=== PATIENT | male | born 1995 | race Caucasian/White ===

== ENCOUNTER 2020-07-08 08:53 | Outpatient (NON) | payer BC, SELFPAY ==
[2020-07-08 20:28] LABS: SARS-CoV-2 RNA PCR Positive
== END 2020-07-08 08:54 ==
PROVIDERS: PCP Internal Medicine; Visit Provider Clinical Nurse Specialist
DX: U07.1 COVID-19 (principal)
CPT/HCPCS: 87635; C9803; U0003

== ENCOUNTER 2020-08-14 11:27 | Emergency (ER) | payer BC, SELFPAY ==
--- NOTE | 2020-08-14 11:31 | ED.GENADULT ---
HPI - General Adult General Chief complaint: Upper Respiratory Infection Stated complaint: SORE THROAT Time Seen by Provider: 08/14/20 11:31 Source: patient Mode of arrival: ambulatory Limitations: no limitations History of Present Illness HPI narrative: 24-year-old male patient presents to the [facility] with complaints of sore throat symptoms that started yesterday. Patient states he feels kind of scratchy and at times it causes him to cough. Denies any fevers, body aches or chills. Denies any ear pain. Denies any runny nose or stuffy nose or sneezing. Denies any chest pain or shortness of breath. Denies any abdominal pain, nausea, vomiting or diarrhea. Patient states he has taken some vqlw-[id number] Tylenol for his symptoms. Patient states that he does vape daily. Patient states he was positive for COVID approximately 1 month ago and has finished his quarantine. Related Data Allergies Allergy/AdvReac Type Severity Reaction Status Date / Time No Known Allergies Allergy Verified 09/23/19 14:18 Review of Systems Review of Systems: Narrative: CONSTITUTIONAL: Denies fever, chills, or sweats. EYES: Denies visual changes, redness, or discharge. ENT: Denies rhinorrhea, congestion, positive sore throat, denies otalgia. CARDIOVASCULAR: Denies chest pain, palpitations, or edema. RESPIRATORY: Positive nonproductive cough, denies dyspnea. GASTROINTESTINAL: Denies abdominal pain, nausea, vomiting, or diarrhea. GENITOURINARY: Denies dysuria or hematuria. SKIN: Denies rash or itching. MUSCULOSKELETAL: Denies back pain, joint pain, or myalgia. NEUROLOGIC: Denies headache, numbness, or weakness. PSYCHIATRIC: Denies anxiety or depression. [facility] Past Medical History Medical History ADHD Depression Surgical History Surgical History History of placement of ear tubes History of tonsillectomy History of tympanoplasty of right ear Family History Family History Father Hypertension Mother Depression Sibling Cerebral palsy Social History Social History (Reviewed 08/14/20 @ 11:32 by LYNN Chang Smoking status: Current some day smoker Tobacco type: e-cigarettes/vaping Alcohol intake: current Comments At the time of my signature I agree with nursing past medical history, surgical, social, and family history. There is no relevant family history pertinent to the presenting complaint. Exam Narrative: Exam Narrative: GENERAL: Well-appearing, well-nourished, and in no acute distress. HEAD: Normocephalic, atraumatic. EYES: PERRLA and EOMI. ENT: Nares with erythema and edema noted bilaterally, no rhinorrhea or epistaxis. Mucous membranes moist. Right TM is clear no erythema or foreign bodies to the canal however there is a little bit of fluid behind the right TM. The left TM was unable to be assessed due to cerumen impaction. Posterior pharynx does have some erythema, no tonsils are present. No exudates or lesions present. NECK: Supple. No lymphadenopathy CHEST: Clear to auscultation. No respiratory distress. HEART: Regular rate and rhythm. No murmur heard. Normal peripheral pulses. ABDOMEN: Soft, nontender, nondistended, normal active bowel sounds. EXTREMITIES: Normal range of motion. No edema. SKIN: Warm, dry, no rash. NEURO: No focal deficits. Alert and oriented x3. Course Reevaluation(s) Reevaluation #1: Reevaluated patient. Discussed with him that his strep test is negative today. Discussed with him that we will send it off to the lab for culture and if the culture comes back positive the next day or 2 then we will call in place him on antibiotics at that time. Patient is requesting a work note. Because patient we did test positive for COVID last month and has finished his quarantine I am willing to give him a work note today due to the fact ceci
[2020-08-14 11:36] VITALS: BP 120/69; PULSE 85; RESP 16; TEMP 36.8; O2SAT 100
== END 2020-08-14 12:00 | disposition home or self-care (01) ==
PROVIDERS: Emergency Provider Nurse Practitioner Family; PCP Internal Medicine
DX: J02.9 Acute pharyngitis, unspecified (principal); F17.200 Nicotine dependence, unspecified, uncomplicated; F32.9 Major depressive disorder, single episode, unspecified
CPT/HCPCS: 87081; 87147; 87880; 99213; G0463

== ENCOUNTER 2020-09-28 12:02 | Emergency (ER) | payer BC, SELFPAY ==
[2020-09-28 12:16] VITALS: BP 131/64; PULSE 65; RESP 16; TEMP 37.3; O2SAT 99
--- NOTE | 2020-09-28 12:35 | ED.URI ---
HPI - URI/Sore Throat General Chief Complaint: Upper Respiratory Infection Stated Complaint: sore throat/abd pain Time Seen by Provider: 09/28/20 12:27 Source: patient and RN notes reviewed Mode of arrival: ambulatory Limitations: no limitations History of Present Illness HPI Narrative: 24-year-old male presents with concern for sore throat, nausea, 2 episodes of vomiting today. He reports he had Covid in June, he has treated for strep throat 2 weeks ago, he did not finish his antibiotic. Reports he has approximately 6 doses left that he did not take. He reports he did replace his toothbrush. MD elicited complaint: sore throat and other (Nausea) Related Data Allergies Allergy/AdvReac Type Severity Reaction Status Date / Time No Known Allergies Allergy Verified 09/23/19 14:18 Review of Systems Review of Systems: Narrative: CONSTITUTIONAL: Denies malaise, chills, sweats, or fever. EYES: Denies visual changes, redness, or discharge. ENT: Denies rhinorrhea, congestion, sinus pain, otalgia. Reports sore throat. CARDIOVASCULAR: Denies chest pain, palpitations, or edema. RESPIRATORY: Reports cough. Denies dyspnea. GASTROINTESTINAL: Denies abdominal pain,diarrhea. Reports nausea, vomiting, SKIN: Denies rash or itching. MUSCULOSKELETAL: Denies myalgia. NEUROLOGIC: Denies headache. All systems reviewed & are unremarkable except as noted in HPI and below PMFSH Past Medical History Medical History (Updated 09/28/20 @ 12:36 by Arabella Eduardo NP) ADHD Depression Surgical History Surgical History History of placement of ear tubes History of tonsillectomy History of tympanoplasty of right ear Family History Family History Father Hypertension Mother Depression Sibling Cerebral palsy Social History Social History Smoking status: Current some day smoker Tobacco type: e-cigarettes/vaping Alcohol intake: current Comments At time of signature, agree with nursing past medical, surgical, social and family history. There is no relevant family history pertinent to the presenting complaint Exam Narrative: Exam Narrative: GENERAL: Well-appearing, well-nourished, and in no acute distress. HEAD: Normocephalic EYES: PERRLA, conjunctivae clear ENT: Nares clear, turbinates pink, no discharge. Mucous membranes moist. TM pearly troy with sharp light reflex bilaterally; no tragal tenderness. Oropharynx erythematous without lesions. Tonsils enlarged and without exudate, no drooling, no hoarseness, no trismus, uvula midline. NECK: Supple. No lymphadenopathy CHEST: Clear to auscultation, breath sounds equal. No wheezing, rhonchi, rales, or stridor. No respiratory distress, speaks in full sentences. HEART: Regular rate and rhythm. No murmur heard. SKIN: Warm, dry, no rash. NEURO: Alert and oriented x3. PSYCH: Normal mood and affect Course Course Emergency Course: Patient is aware of diagnosis, understands and agrees to treatment plan. Anticipatory guidance given. Patient agrees to follow-up as directed and is aware of reasons to seek care at the emergency department. Portions of this record may have been created with voice recognition software Vital Signs Vital signs: Vital Signs Temperature 99.1 F 09/28/20 12:16 Pulse Rate 65 09/28/20 12:16 Respiratory Rate 16 09/28/20 12:16 Blood Pressure 131/64 09/28/20 12:16 Pulse Oximetry 99 09/28/20 12:16 Temperature 99.1 F 09/28/20 12:16 Pulse Rate 65 09/28/20 12:16 Respiratory Rate 16 09/28/20 12:16 Blood Pressure 131/64 09/28/20 12:16 Pulse Oximetry 99 09/28/20 12:16 Reviewed. MDM - URI/Sore Throat MDM Narrative Medical decision making narrative: Differential diagnosis considered: Soto virus, strep pharyngitis, allergic rhinitis, upper respiratory tract infection, sinusitis,
== END 2020-09-28 12:38 | disposition home or self-care (01) ==
PROVIDERS: Emergency Provider Nurse Practitioner; PCP Internal Medicine
DX: J02.0 Streptococcal pharyngitis (principal); F17.200 Nicotine dependence, unspecified, uncomplicated; F32.9 Major depressive disorder, single episode, unspecified
CPT/HCPCS: 87880; 99213; G0463

== ENCOUNTER 2020-11-04 15:26 | Emergency (ER) | payer BC, SELFPAY ==
[2020-11-04 15:41] VITALS: BP 128/73; PULSE 73; RESP 16; TEMP 36.8; O2SAT 100
--- NOTE | 2020-11-04 15:45 | ED.URI ---
HPI - URI/Sore Throat General Chief Complaint: Upper Respiratory Infection Stated Complaint: sore throat Source: patient Mode of arrival: ambulatory Limitations: no limitations History of Present Illness HPI Narrative: Patient is a 25-year-old male who presents complaining of sore throat, headache and body aches x2 days. Patient reports a friend mother is positive for at this time. Patient denies fever. He denies all other complaints. Patient has not taking any iqrk-ner-goeqctc medications for pain at this time. MD elicited complaint: sore throat Related Data Home Medications Medication Instructions Recorded Confirmed No Home Medications 11/04/20 11/04/20 Allergies Allergy/AdvReac Type Severity Reaction Status Date / Time No Known Allergies Allergy Verified 09/23/19 14:18 Review of Systems Review of Systems: Narrative: CONSTITUTIONAL: Denies fever, chills, or sweats. EYES: Denies visual changes, redness, or discharge. ENT: Reports sore throat CARDIOVASCULAR: Denies chest pain, palpitations, or edema. RESPIRATORY: Denies cough or dyspnea. GASTROINTESTINAL: Denies abdominal pain, nausea, vomiting, or diarrhea. GENITOURINARY: Denies dysuria or hematuria. SKIN: Denies rash or itching. MUSCULOSKELETAL: Denies back pain, joint pain, or myalgia. NEUROLOGIC: Reports headache, denies numbness, dizziness, or weakness. PSYCHIATRIC: Denies anxiety or depression. PMFSH Past Medical History Medical History (Updated 11/04/20 @ 16:00 by NANCY Adler) ADHD Depression Surgical History Surgical History History of placement of ear tubes History of tonsillectomy History of tympanoplasty of right ear Family History Family History Father Hypertension Mother Depression Sibling Cerebral palsy Social History Social History Smoking status: Current some day smoker Tobacco type: e-cigarettes/vaping Alcohol intake: current Exam Narrative: Exam Narrative: GENERAL: Well-appearing, well-nourished, and in no acute distress. HEAD: Normocephalic, atraumatic. EYES: EOMI. No redness or drainage. Conjunctiva are normal. ENT: Mucous membranes pink and moist. Nares clear. No rhinorrhea. TMs normal bilaterally. Throat normal. Uvula midline. CHEST: No respiratory distress. HEART: Regular rate and rhythm. EXTREMITIES: Normal range of motion. No edema. SKIN: Warm, dry, no rash. NEURO: No focal deficits. Alert and oriented x3. Gait steady. PSYCH: Normal affect. No signs of depression or anxiety. Course Vital Signs Vital signs: Reviewed MDM - URI/Sore Throat MDM Narrative Medical decision making narrative: Patient strep and influenza are negative at this time. Covid testing to be ordered at this time. Patient aware Differential Diagnosis Differential diagnosis: Likely upper respiratory infection, sinusitis, viral infection and pharyngitis Lab Data Lab results narrative: Rapid strep and influenza negative Critical Care Time Critical Care Time Critical Care Time: No Discharge Plan Discharge Clinical Impression: Upper respiratory infection Qualifiers: URI type: unspecified URI Qualified Code(s): J06.9 - Acute upper respiratory infection, unspecified Patient Disposition: Home, Self-Care Condition: Stable Instructions: COVID-19 (Coronavirus Disease 2019) (ED) Additional Instructions: Your rapid strep and influenza are negative. Please wait for call for Covid testing. Continue the quarantine until test results come in. You may take Tylenol or ibuprofen for pain or fever. Prescriptions: No Action No Home Medications RF: 0 Other Ambulatory Orders: SARS-CoV-2 RNA, Qual RT-PCR (Routine) Location: Determined by Patient Ordered By: Sona Flores Follow-up/Referrals: Samuel Mai, [Prima
== END 2020-11-04 16:10 | disposition home or self-care (01) ==
PROVIDERS: Emergency Provider Nurse Practitioner; PCP Internal Medicine
DX: J06.9 Acute upper respiratory infection, unspecified (principal); Z20.828 Contact with and (suspected) exposure to other viral communicable diseases
CPT/HCPCS: 87081; 87804; 87880; 99213; G0463

== ENCOUNTER → 2021-06-17 02:26 | Outpatient (CLI) | payer BC, SELFPAY ==
[2021-06-18 15:33] LABS: SARS-CoV-2 RNA PCR Negative
== END ==
PROVIDERS: PCP Internal Medicine; Visit Provider Nurse Practitioner
DX: R68.89 Other general symptoms and signs (principal); Z20.822 Contact with and (suspected) exposure to COVID-19
CPT/HCPCS: C9803; U0003; U0005

== ENCOUNTER 2021-08-18 11:35 | Emergency (ER) | payer BC, SELFPAY ==
[2021-08-18 11:54] VITALS: BP 119/73; PULSE 64; RESP 16; TEMP 36.5; O2SAT 100
--- NOTE | 2021-08-18 12:16 | ED.URI ---
HPI - URI/Sore Throat General Chief Complaint: Upper Respiratory Infection Stated Complaint: Sore Throat Time Seen by Provider: 08/18/21 12:16 Source: patient Mode of arrival: ambulatory Limitations: no limitations History of Present Illness HPI Narrative: Stan Owens is a 25 yo male who comes to with complaints of a sore throat that started 2 days ago. He went home from work today because his throat is hurting him and he has been feeling poorly-1 to be checked for strep throat Related Data Home Medications Medication Instructions Recorded Confirmed buspirone mg 08/18/21 escitalopram oxalate mg 08/18/21 08/18/21 Allergies Allergy/AdvReac Type Severity Reaction Status Date / Time No Known Allergies Allergy Verified 08/18/21 12:23 Review of Systems Review of Systems: CONSTITUTIONAL: Denies fever, chills, sweats. EYES: Denies visual changes, redness, discharge. ENT: Denies rhinorrhea, congestion, has sore throat, otalgia. CARDIOVASCULAR: Denies chest pain, palpitations, edema. RESPIRATORY: Denies dyspnea, wheezing, cough GASTROINTESTINAL: Denies abdominal pain, nausea, vomiting, diarrhea. GENITOURINARY: Denies dysuria, hematuria, abnormal discharge SKIN: Denies rash or itching. NEUROLOGIC: Denies numbness, or focal weakness. PSYCHIATRIC: Denies anxiety or depression. PMFSH Past Medical History Medical History (Updated 08/18/21 @ 12:19 by Lizzeth Lao CNP) ADHD Depression Surgical History Surgical History History of placement of ear tubes History of tonsillectomy History of tympanoplasty of right ear Family History Family History Father Hypertension Mother Depression Sibling Cerebral palsy Social History Social History Smoking status: Current some day smoker Tobacco type: e-cigarettes/vaping Alcohol intake: current Alcohol use details: occasional Comments At time of signature, I agree with nursing past medical, surgical, social and family history. There is no relevant family history pertinent to the presenting complaint. Exam Narrative: GENERAL: This is a well-nourished, well-developed patient, in mild distress. HEAD: normocephalic, atraumatic. EYES: Sclera clear/white. Vision is grossly intact. EARS: External ears normal, auditory canals clear and without drainage, TMs normal without perforation. Hearing grossly intact. NOSE: External nose normal without nasal discharge, nares with redness, has rhinorrhea. THROAT: Mucous membranes moist, posterior pharynx erythema with mild edema, especially to the left NECK: Neck supple, non-tender CARDIOVASCULAR: Regular rate and rhythm without murmurs, gallops, or rubs. RESPIRATORY: Clear to auscultation. Breath sounds equal bilaterally. No wheezes, rales, or rhonchi. GASTROINTESTINAL: Abdomen soft, SKIN: warm, intact with no suspicious lesions or rash, good texture and turgor. NEURO: awake, alert, and oriented to person, place and time. There were no obvious focal neurologic abnormalities. Steady gait EXTREMITIES: Normal range of motion. BACK: Nontender without deformity Course Course Emergency Course: Patient here for complaints of sore throat not feeling well Strep test negative Started on steroids, Zyrtec, recommended taking ibuprofen for pain Vital Signs Vital signs: Vital Signs Temperature 97.7 F 08/18/21 11:54 Pulse Rate 64 08/18/21 11:54 Respiratory Rate 16 08/18/21 11:54 Blood Pressure 119/73 08/18/21 11:54 Pulse Oximetry 100 08/18/21 11:54 Temperature 97.7 F 08/18/21 11:54 Pulse Rate 64 08/18/21 11:54 Respiratory Rate 16 08/18/21 11:54 Blood Pressure 119/73 08/18/21 11:54 Pulse Oximetry 100 08/18/21 11:54 MDM - URI/Sore Throat Differential Diagnosis Differential diagnosis: Likely upper respiratory in
== END 2021-08-18 12:25 | disposition home or self-care (01) ==
PROVIDERS: Emergency Provider Nurse Practitioner; PCP Internal Medicine
DX: J02.9 Acute pharyngitis, unspecified (principal); F17.210 Nicotine dependence, cigarettes, uncomplicated; F32.A Depression, unspecified
CPT/HCPCS: 87081; 87880; 99213; G0463

== ENCOUNTER 2022-02-10 09:02 | Emergency (ER) | payer BC, SELFPAY ==
[2022-02-10 09:09] VITALS: BP 138/78; PULSE 72; RESP 16; TEMP 37.1; O2SAT 99
[2022-02-10 09:14] VITALS: BP 138/78; PULSE 72; RESP 16; TEMP 37.1; O2SAT 99
--- NOTE | 2022-02-10 09:21 | ED.NAVMDI ---
HPI - Nausea/Vomiting/Diarrhea General Chief complaint: Nausea/Vomiting/Diarrhea Stated complaint: abd pain/vomiting/diarrhea Time Seen by Provider: 02/10/22 09:22 Source: patient, RN notes reviewed and old records reviewed Mode of arrival: ambulatory Limitations: no limitations History of Present Illness HPI Narrative: 26-year-old male presents to the [facility] with complaints of nausea vomiting without abdominal pain for 2 days. States that he bought an air Fryer and stuck to his freezer and has been living on fried foods such as fried fish and Danish fries. States that he needs a work note. Denies chest pain or abdominal pain. Is able to keep fluids down. Appears nontoxic, vitals are stable. No fevers. Patient states that he is concerned for influenza and would like an influenza test. Requesting a work note MD elicited complaint: nausea and vomiting Related Data Home Medications Medication Instructions Recorded Confirmed silver sulfadiazine 1 applic TOPICAL DAILY 02/10/22 02/10/22 Allergies Allergy/AdvReac Type Severity Reaction Status Date / Time No Known Allergies Allergy Verified 02/10/22 09:17 Review of Systems Review of Systems: All systems reviewed & are unremarkable except as noted in HPI and below Constitutional: Constitutional: Reports no additional constitutional complaints, Denies chills and Denies fever(s) Eyes: Eyes: Reports no additional eye complaints ENT: Reports system reviewed and no additional complaints, except as documented and Denies sore throat Cardiovascular: Cardiovascular: Reports no additional cardiovascular complaints, Denies chest pain and Denies dyspnea Respiratory: Respiratory: Reports no additional respiratory complaints, Denies cough, Denies dyspnea and Denies wheezing Gastrointestinal: Gastrointestinal: Reports no additional gastrointestinal complaints, Denies abdominal pain, Denies diarrhea, Reports nausea and Reports vomiting Musculoskeletal: Musculoskeletal: Reports no additional musculoskeletal complaints and Denies back pain Integumentary/Breasts: Skin/Breast: Reports system reviewed and no additional complaints, except as docu Neurologic: Reports system reviewed and no additional complaints, except as documented Psychiatric: Psychiatric: Reports no additional psychiatric complaints Allergic/Immunologic: Allergic/Immunologic: Reports no additional allergic/immunologic complaints and Denies wheezing PMFSH Past Medical History Medical History (Updated 02/10/22 @ 09:33 by Arabella Childs APRN) ADHD Depression Surgical History Surgical History History of placement of ear tubes History of tonsillectomy History of tympanoplasty of right ear Family History Family History Father Hypertension Mother Depression Sibling Cerebral palsy Social History Social History Smoking status: Current some day smoker Tobacco type: e-cigarettes/vaping Alcohol intake: current Alcohol use details: occasional Comments At the time of my signature, I reviewed and agree with the nursing past medical, surgical, social, and family history. There is no relevant family history pertinent to the patient complaint. Exam Const: General: healthy appearing, no acute distress, well developed, alert and awake Nutritional Appearance: well nourished Orientation/consciousness: patient oriented x3 Limitations: no limitations HENMT: Head: normal to inspection Ears: external ears normal and Abnormal EAC present excessive cerumen bilateral Face and sinus: normal facial exam Mouth: Yes moist mucous membranes Throat: posterior oropharynx normal and uvula midline Eyes: Pupils: Equal, round and reactive pupils present EOM: EOMs intact bilaterally Neck: Neck: normal visual inspection, no lymphadenopathy and no men
== END 2022-02-10 09:35 | disposition home or self-care (01) ==
PROVIDERS: Emergency Provider Nurse Practitioner
DX: K52.9 Noninfective gastroenteritis and colitis, unspecified (principal); F17.290 Nicotine dependence, other tobacco product, uncomplicated
CPT/HCPCS: 87804; 99213; G0463

== ENCOUNTER 2022-03-26 09:08 | Emergency (ER) | payer BC, SELFPAY ==
[2022-03-26 09:18] VITALS: BP 123/81; PULSE 80; RESP 18; TEMP 36.1; O2SAT 100
--- NOTE | 2022-03-26 09:39 | ED.URI ---
HPI - URI/Sore Throat General Chief Complaint: Upper Respiratory Infection Stated Complaint: Throwing Up,Sore Throat Time Seen by Provider: 03/26/22 09:39 Source: patient Mode of arrival: ambulatory Limitations: no limitations History of Present Illness HPI Narrative: 26-year-old male presents with complaint of nasal congestion, cough, nausea vomiting, fatigue, headache that started yesterday. Denies fever chills. Denies diarrhea. Reports upset stomach but no abdominal pain. Has not taken any [id number] medications to treat his symptoms. All systems reviewed and negative except as noted above. Related Data Allergies Allergy/AdvReac Type Severity Reaction Status Date / Time No Known Allergies Allergy Verified 03/26/22 09:25 Review of Systems Review of Systems: CONSTITUTIONAL: Denies fever, chills, or sweats. EYES: Denies visual changes, redness, or discharge. ENT: Reports rhinorrhea, congestion, sore throat. Denies otalgia. CARDIOVASCULAR: Denies chest pain, palpitations, or edema. RESPIRATORY: Reports cough. Denies dyspnea. GASTROINTESTINAL: Denies abdominal pain. Reports nausea, vomiting. Denies diarrhea. GENITOURINARY: Denies dysuria or hematuria. SKIN: Denies rash or itching. MUSCULOSKELETAL: Denies back pain, joint pain, or myalgia. NEUROLOGIC: Reports headache. Denies numbness, or weakness. PSYCHIATRIC: Denies anxiety or depression. All other systems reviewed are negative, except as documented in HPI. [facility] Past Medical History Medical History (Updated 03/26/22 @ 10:18 by Naye Brady NP) ADHD Depression Surgical History Surgical History History of placement of ear tubes History of tonsillectomy History of tympanoplasty of right ear Family History Family History Father Hypertension Mother Depression Sibling Cerebral palsy Social History Social History Smoking status: Current some day smoker Tobacco type: e-cigarettes/vaping Alcohol intake: current Alcohol use details: occasional Comments At time of signature, agree with nursing past medical, surgical, social and family history. There is no relevant family history pertinent to the presenting complaint. Exam Narrative: GENERAL: This is a well-nourished, well-developed patient, in no apparent distress. HEAD: normocephalic, atraumatic. EYES: PERRL. Sclera clear/white. Vision is grossly intact. EARS: External ears normal, auditory canals clear and without drainage, TMs normal without perforation. Hearing grossly intact. NOSE: External nose normal with clear nasal drainage. No significant erythema or swelling to nares. THROAT: Mucous membranes moist, posterior pharynx clear. NECK: Neck supple, non-tender without lymphadenopathy, masses or thyromegaly. CARDIOVASCULAR: Regular rate and rhythm without murmurs, gallops, or rubs. RESPIRATORY: Clear to auscultation. Breath sounds equal bilaterally. No wheezes, rales, or rhonchi. SKIN: warm, Dry, intact with no suspicious lesions or rash, good texture and turgor. NEURO: awake, alert, and oriented to person, place and time. There were no obvious focal neurologic abnormalities. EXTREMITIES: Normal range of motion to all extremities. Course Course Level of Care: Express Care Visit Vital Signs Vital signs: Vital Signs Temperature 36.1 C L 03/26/22 09:18 Pulse Rate 80 03/26/22 09:18 Respiratory Rate 18 03/26/22 09:18 Blood Pressure 123/81 03/26/22 09:18 Pulse Oximetry 100 03/26/22 09:18 Temperature 36.1 C L 03/26/22 09:18 Pulse Rate 80 03/26/22 09:18 Respiratory Rate 18 03/26/22 09:18 Blood Pressure 123/81 03/26/22 09:18 Pulse Oximetry 100 03/26/22 09:18 Reviewed MDM - URI/Sore Throat MDM Narrative Medical decision making narrative: Patient is aware of diagnosis, unde
[2022-03-26] MEDS: ONDANSETRON HCL ODT 4 MG TABLET SUBLINGUAL (09:51)
== END 2022-03-26 10:22 | disposition home or self-care (01) ==
PROVIDERS: Emergency Provider Nurse Practitioner Family; PCP Internal Medicine
DX: B34.9 Viral infection, unspecified (principal); Z20.822 Contact with and (suspected) exposure to COVID-19; F17.290 Nicotine dependence, other tobacco product, uncomplicated
CPT/HCPCS: 87426; 87804; 99213; A9270; C9803; G0463

== ENCOUNTER 2022-05-07 11:30 | Emergency (ER) | payer BC, SELFPAY ==
--- NOTE | 2022-05-07 11:32 | ED.NAVMDI ---
HPI - Nausea/Vomiting/Diarrhea General Stated complaint: vomitting, requesting flu test Time Seen by Provider: 05/07/22 11:50 Source: patient and RN notes reviewed Mode of arrival: ambulatory Limitations: no limitations History of Present Illness HPI Narrative: 26-year-old male presents concern for 1 episode of vomiting, nausea and diarrhea. Reports symptoms started today. Reports coworker have influenza. He reports nasal congestion rhinorrhea and mild sore throat. He denies cough, shortness of breath, fever, bodies, chills, sweats. MD elicited complaint: nausea, vomiting and diarrhea Related Data Allergies Allergy/AdvReac Type Severity Reaction Status Date / Time No Known Allergies Allergy Verified 03/26/22 09:25 Review of Systems Review of Systems: CONSTITUTIONAL: Denies malaise, chills, sweats, or fever. ENT: Reports rhinorrhea, congestion, sore throat. CARDIOVASCULAR: Denies chest pain, palpitations, or edema. RESPIRATORY: Denies cough or dyspnea. GASTROINTESTINAL: Denies abdominal pain, bloody, or mucous stools. Reports nausea, vomiting, diarrhea GENITOURINARY: Denies dysuria or hematuria. MUSCULOSKELETAL: Denies myalgia. NEUROLOGIC: Denies headache. All systems reviewed & are unremarkable except as noted in HPI and below PMFSH Past Medical History Medical History (Updated 05/07/22 @ 11:59 by Arabella Eduardo NP) ADHD Depression Surgical History Surgical History History of placement of ear tubes History of tonsillectomy History of tympanoplasty of right ear Family History Family History Father Hypertension Mother Depression Sibling Cerebral palsy Social History Social History Smoking status: Current some day smoker Tobacco type: e-cigarettes/vaping Alcohol intake: current Alcohol use details: occasional Comments At time of signature, agree with nursing past medical, surgical, social and family history. There is no relevant family history pertinent to the presenting complaint Exam Narrative: GENERAL: Well-appearing, well-nourished, and in no acute distress. HEAD: Normocephalic, atraumatic. EYES: PERRLA, conjunctivae clear, and EOMI. ENT: Nares clear, turbinates edematous and erythematous, clear discharge. Mucous membranes moist. TM pearly troy with dull light reflex bilaterally; no tragal tenderness. Oropharynx erythematous without lesions. Tonsils enlarged and without exudate, no drooling, no hoarseness, no trismus, uvula midline. NECK: Supple. No lymphadenopathy CHEST: Clear to auscultation, breath sounds equal. No wheezing, rhonchi, rales, or stridor. No respiratory distress, speaks in full sentences. HEART: Regular rate and rhythm. ABDOMEN: Soft, flat, nondistended. Nontender. Bowel sounds present in all four quadrants. SKIN: Warm, dry, no rash. NEURO: Alert and oriented x3. PSYCH: Normal mood and affect Course Course Emergency Course: Patient is aware of diagnosis, understands and agrees to treatment plan. Anticipatory guidance given. Patient agrees to follow-up as directed and is aware of reasons to seek care at the emergency department. Portions of this record may have been created with voice recognition software Level of Care: Express Care Visit Vital Signs Vital signs: Reviewed. MDM - Nausea/Vomiting/Diarrhea MDM Narrative Medical decision making narrative: Differential diagnosis considered: Gastroenteritis, acute abdomen, Soto virus, strep pharyngitis, allergic rhinitis, upper respiratory tract infection, sinusitis, rhinosinusitis, nasopharyngitis. viral pharyngitis, otitis media, otitis externa, pneumonia, bronchitis, viral cough syndrome, viral syndrome, and influenza. Exam findings show no acute concerns or changes; patient is non-toxic appearing and is in no distress. Patient is appropriate fo
[2022-05-07 11:35] VITALS: BP 126/64; PULSE 61; RESP 20; TEMP 37.2; O2SAT 99
== END 2022-05-07 12:06 | disposition home or self-care (01) ==
PROVIDERS: Emergency Provider Nurse Practitioner; PCP Internal Medicine
DX: R11.2 Nausea with vomiting, unspecified (principal); F17.290 Nicotine dependence, other tobacco product, uncomplicated
CPT/HCPCS: 87081; 87804; 87880; 99213; G0463

== ENCOUNTER 2023-04-05 12:31 | Emergency (ER) | payer BC, SELFPAY ==
[2023-04-05 12:42] VITALS: BP 151/96; PULSE 64; RESP 16; TEMP 37.2; O2SAT 100
--- NOTE | 2023-04-05 13:09 | ED.URI ---
HPI - URI/Sore Throat General Chief Complaint: Upper Respiratory Infection Stated Complaint: Sinus/Nausea Time Seen by Provider: 04/05/23 13:09 Source: patient and RN notes reviewed Mode of arrival: ambulatory Limitations: no limitations History of Present Illness HPI Narrative: 27 y/o male presented for c/o sinus congestion and facial pressure, cough, and nausea for a few days. Taking DayQuil for symptoms. Denies shortness of breath, wheezing, vomiting, fevers or chills. MD elicited complaint: cough Related Data Allergies Allergy/AdvReac Type Severity Reaction Status Date / Time No Known Allergies Allergy Verified 04/05/23 12:54 Review of Systems Review of Systems: CONSTITUTIONAL: Denies malaise, chills, sweats, fever EYES: Denies visual changes, redness, or discharge ENT: Reports rhinorrhea, congestion, sinus pain, denies otalgia, sore throat CARDIOVASCULAR: Denies chest pain, palpitations, edema RESPIRATORY: Reports cough, post nasal drainage. Denies dyspnea GASTROINTESTINAL: Denies abdominal pain, nausea, vomiting, diarrhea SKIN: Denies rash or itching MUSCULOSKELETAL: Denies myalgia NEUROLOGIC: Denies headache PMFSH Past Medical History Medical History ADHD Depression Surgical History Surgical History History of placement of ear tubes History of tonsillectomy History of tympanoplasty of right ear Family History Family History Father Hypertension Mother Depression Sibling Cerebral palsy Social History Social History Smoking status: Current some day smoker Tobacco type: e-cigarettes/vaping Alcohol intake: current Alcohol use details: occasional Exam Narrative: GENERAL: Mildly ill-appearing, nontoxic no acute distress. HEAD: Normocephalic EYES: PERRLA, conjunctivae clear ENT: Mucous membranes moist. TM pearly troy with dull light reflex bilaterally; no tragal tenderness. Oropharynx erythematous without lesions or exudate NECK: Supple. No lymphadenopathy CHEST: Clear to auscultation, breath sounds equal. No wheezing, rhonchi, rales, or stridor. No respiratory distress, speaks in full sentences. HEART: Regular rate and rhythm. No murmur heard. SKIN: Warm, dry, no rash. NEURO: Alert and oriented x3. PSYCH: Normal mood and affect Course Course Emergency Course: Patient is aware of diagnosis, understands and agrees to treatment plan. Anticipatory guidance given. Patient agrees to follow-up as directed and is aware of reasons to seek care at the emergency department. Portions of this record may have been created with voice recognition software Level of Care: Express Care Visit Vital Signs Vital signs: Vital Signs Temperature 99 F 04/05/23 12:42 Pulse Rate 64 04/05/23 12:42 Respiratory Rate 16 04/05/23 12:42 Blood Pressure 151/96 H 04/05/23 12:42 Pulse Oximetry 100 04/05/23 12:42 Oxygen Delivery Room Air 04/05/23 12:42 Temperature 99 F 04/05/23 12:42 Pulse Rate 64 04/05/23 12:42 Respiratory Rate 16 04/05/23 12:42 Blood Pressure 121/78 04/05/23 13:20 Pulse Oximetry 100 04/05/23 12:42 Oxygen Delivery Room Air 04/05/23 12:42 reviewed MDM - URI/Sore Throat MDM Narrative Medical decision making narrative: Declines strep for COVID testing. Requesting work note. BP improved on recheck. Discussed physical exam findings. Advised supportive measures and signs/symptoms to go to the ER. Pt is appropriate for outpt treatment and f/u. Differential Diagnosis Differential diagnosis: Likely upper respiratory infection, sinusitis and viral infection Discharge Plan Discharge Clinical Impression: Upper respiratory infection Qualifiers: URI type: unspecified URI Qualified Code(s): J06.9 - Acute upper respirat
[2023-04-05 13:20] VITALS: BP 121/78
== END 2023-04-05 13:20 | disposition home or self-care (01) ==
PROVIDERS: Emergency Provider Nurse Practitioner Family; PCP Family Medicine
DX: J06.9 Acute upper respiratory infection, unspecified (principal); F17.290 Nicotine dependence, other tobacco product, uncomplicated
CPT/HCPCS: 99213; G0463

== ENCOUNTER 2023-05-05 10:41 | Emergency (ER) | payer BC, SELFPAY ==
[2023-05-05 10:55] VITALS: BP 119/61; PULSE 66; RESP 16; TEMP 37.2; O2SAT 100
--- NOTE | 2023-05-05 11:09 | ED.URI ---
HPI - URI/Sore Throat General Chief Complaint: Upper Respiratory Infection Stated Complaint: Sore throat, and drainage Time Seen by Provider: 05/05/23 11:08 Source: patient and RN notes reviewed Mode of arrival: ambulatory Limitations: no limitations History of Present Illness HPI Narrative: 27-year-old male presents with concern for sore throat, nasal congestion, rhinorrhea, cough, postnasal drainage. Reports he has been taking DayQuil and NyQuil. He reports he missed work yesterday and today. He denies fever, aches, chills, sweats. Denies known sick contacts. MD elicited complaint: cough, sore throat and nasal congestion Related Data Allergies Allergy/AdvReac Type Severity Reaction Status Date / Time No Known Allergies Allergy Verified 05/05/23 10:54 Review of Systems Review of Systems: CONSTITUTIONAL: Denies malaise, chills, sweats, or fever. EYES: Denies visual changes, redness, or discharge. ENT: Reports rhinorrhea, congestion,otalgia and sore throat. CARDIOVASCULAR: Denies chest pain, palpitations, or edema. RESPIRATORY: Reports cough. Denies dyspnea. GASTROINTESTINAL: Denies abdominal pain, nausea, vomiting, diarrhea SKIN: Denies rash or itching. MUSCULOSKELETAL: Denies myalgia. NEUROLOGIC: Denies headache. All systems reviewed & are unremarkable except as noted in HPI and below PMFSH Past Medical History Medical History (Updated 05/05/23 @ 11:15 by Arabella Eduardo NP) ADHD Depression Surgical History Surgical History History of placement of ear tubes History of tonsillectomy History of tympanoplasty of right ear Family History Family History Father Hypertension Mother Depression Sibling Cerebral palsy Social History Social History Smoking status: Current some day smoker Tobacco type: e-cigarettes/vaping Alcohol intake: current Alcohol use details: occasional Comments At time of signature, agree with nursing past medical, surgical, social and family history. There is no relevant family history pertinent to the presenting complaint Exam Narrative: GENERAL: Well-appearing, well-nourished, and in no acute distress. HEAD: Normocephalic EYES: PERRLA, conjunctivae clear ENT: Nares clear, turbinates edematous and erythematous, clear discharge. Mucous membranes moist. TM pearly troy with dull light reflex bilaterally; no tragal tenderness. Oropharynx not erythematous without lesions. Tonsils not enlarged and without exudate, no drooling, no hoarseness, no trismus, uvula midline. NECK: Supple. No lymphadenopathy CHEST: Clear to auscultation, breath sounds equal. No wheezing, rhonchi, rales, or stridor. No respiratory distress, speaks in full sentences. HEART: Regular rate and rhythm. No murmur heard. SKIN: Warm, dry, no rash. NEURO: Alert and oriented x3. PSYCH: Normal mood and affect Course Course Emergency Course: Patient is aware of diagnosis, understands and agrees to treatment plan. Anticipatory guidance given. Patient agrees to follow-up as directed and is aware of reasons to seek care at the emergency department. Portions of this record may have been created with voice recognition software Level of Care: Express Care Visit Vital Signs Vital signs: Vital Signs Temperature 98.9 F 05/05/23 10:55 Pulse Rate 66 05/05/23 10:55 Respiratory Rate 16 05/05/23 10:55 Blood Pressure 119/61 05/05/23 10:55 Pulse Oximetry 100 05/05/23 10:55 Oxygen Delivery Room Air 05/05/23 10:55 Temperature 98.9 F 05/05/23 10:55 Pulse Rate 66 05/05/23 10:55 Respiratory Rate 16 05/05/23 10:55 Blood Pressure 119/61 05/05/23 10:55 Pulse Oximetry 100 05/05/23 10:55 Oxygen Delivery Room Air 05/05/23 10:55 Reviewed. MDM - URI/Sore Throat MDM Narrative Medical decision making narrat
== END 2023-05-05 11:20 | disposition home or self-care (01) ==
PROVIDERS: Emergency Provider Nurse Practitioner; PCP Internal Medicine
DX: J06.9 Acute upper respiratory infection, unspecified (principal); F17.290 Nicotine dependence, other tobacco product, uncomplicated
CPT/HCPCS: 87081; 87880; 99213; G0463

== ENCOUNTER → 2023-10-07 09:49 | Outpatient (CLI) | payer BC, SELFPAY ==
--- NOTE | ~2023-10-07 | US_ITS ---
US scrotum doppler INDICATION: Testicular pain and palpable right lump. TECHNIQUE: Testicular sonogram utilizing grayscale and color Doppler FINDINGS: The testes are normal in size and appearance. No focal lesions are seen. The right testes measures 3.9 x 3.1 x 2.1 cm centimeters, and the left testis measures 4.3 x 2.8 x 2.2 cm cm. There is normal vascular flow to both testes. The right and left epididymides appear normal. There is no varicocele or hydrocele. IMPRESSION: 1. Unremarkable testicular ultrasound. Reviewed, dictated and finalized at location L. CARE HOME PROVIDER
== END ==
PROVIDERS: PCP Internal Medicine; Visit Provider Clinical Nurse Specialist
DX: N50.89 Other specified disorders of the male genital organs (principal)
CPT/HCPCS: 76870; 93976

== ENCOUNTER 2024-07-19 10:58 | Emergency (ER) | payer SELFPAY ==
[2024-07-19 11:11] VITALS: BP 140/75; PULSE 89; RESP 16; TEMP 37.1; O2SAT 100
--- NOTE | 2024-07-19 11:11 | ED.GENADULT ---
HPI - General Adult General Chief complaint: Urogenital-Male Stated complaint: Sti Test Time Seen by Provider: 07/19/24 11:11 Source: patient, RN notes reviewed and old records reviewed Mode of arrival: ambulatory Limitations: no limitations History of Present Illness HPI narrative: 28-year-old male to [facility] for complaint red, raised , itchy rash to bilateral dorsal hands, waistline and genitalia for 2 days. Patient reports switching to a new body wash recently. Patient states that after rash appeared, he discontinued new body wash and has been using scent free, sensitive soap as well as Aquaphor to treat the rash. patient denies any concern for STI. patient denies urinary changes, penile discharge, scrotal swelling/pain, bowel changes, abdominal pain, fever body aches, cough, malaise, fatigue. Patient sitting anxiously in exam room. Respirations even and nonlabored. Patient in no acute distress. 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 Patient states that he has to wear a back brace and that his waistline is often exposed to higher temperatures while cooking. Patient requesting work note for today. Related Data Allergies Allergy/AdvReac Type Severity Reaction Status Date / Time No Known Allergies Allergy Verified 07/19/24 11:09 Review of Systems Review of Systems: All systems reviewed & are unremarkable except as noted in HPI and below Constitutional: Constitutional: Reports no additional constitutional complaints Eyes: Eyes: Reports no additional eye complaints ENT: Reports system reviewed and no additional complaints, except as documented Cardiovascular: Cardiovascular: Reports no additional cardiovascular complaints, Denies chest pain and Denies dyspnea Respiratory: Respiratory: Reports no additional respiratory complaints, Denies cough and Denies dyspnea Musculoskeletal: Musculoskeletal: Reports no additional musculoskeletal complaints Integumentary/Breasts: Skin/Breast: Reports as per HPI, Reports pruritus and Reports rash Neurologic: Reports system reviewed and no additional complaints, except as documented Psychiatric: Psychiatric: Reports no additional psychiatric complaints PMFSH Past Medical History Medical History ADHD Depression Surgical History Surgical History History of placement of ear tubes History of tonsillectomy History of tympanoplasty of right ear Family History Family History Father Hypertension Mother Depression Sibling Cerebral palsy Social History Social History Smoking status: Current some day smoker Tobacco type: e-cigarettes/vaping Additional smoking assessment comments: vape contains nicotine, tapering off the nicotine at this time Alcohol intake: current Alcohol use details: occasional Lack of Transportation: No Lack of Food: Never True Current Housing: I Have Housing Concerned About Future Housing: No Difficulty Paying Gas/Electric Bills: No Difficulty Paying for Meds: No Currently Unemployed: No Education: High School Diploma/GED Difficulty w/ Childcare or Family Care: No Comments At the time of my signature, I reviewed and agree with the nursing past medical, surgical, social, and family history. There is no relevant family history pertinent to the patient complaint. Exam Const: General: cooperative, healthy appearing, no acute distress, well developed, alert, anxious, uncomfortable, well groomed and well nourished Nutritional Appearance: well nourished Orientation/consciousness: patient oriented x3 Limitations: no limitations HENMT: Head: normal to inspection Ears: external ears normal Face/Nose/Sinus: Normal external nose present, Normal nares pr
== END 2024-07-19 11:48 | disposition home or self-care (01) ==
PROVIDERS: Emergency Provider Nurse Practitioner Family; PCP Internal Medicine
DX: L25.9 Unspecified contact dermatitis, unspecified cause (principal); F90.9 Attention-deficit hyperactivity disorder, unspecified type
CPT/HCPCS: 99213; G0463

== ENCOUNTER 2025-08-27 08:22 | Outpatient (CLI) | payer OTHER, SELFPAY ==
[2025-08-27 13:10] LABS: Hematocrit 44.1 % (42.0-52.0); Hemoglobin 14.9 g/dL (14.0-18.0); Immature Granulocyte Percent A 0.2 % (0-0.5); Lymphocytes Absolute Auto 1.24 K/mm3 (0.9-3.2); Mean Corpuscular HGB Conc 33.8 g/dl (32-36); Mean Corpuscular Hemoglobin 30.9 pg (26-34); Mean Corpuscular Volume 91.5 fl (80-100); Nucleated Red Blood Cells Absolute Auto 0.000 K/mm3 (0.0-0.012); Nucleated Red Blood Cells Perc 0.0 % (0.0-0.2); Platelet Count Result 249 k/mm3 (150-375); Red Blood Count 4.82 M/mm3 (4.6-6.20); White Blood Count 5.1 K/mm3 (4.5-10.0)
[2025-08-27 13:15] LABS: Alanine Aminotransferase 21 U/L (6-50); Albumin Level 5.3 g/dL (3.5-5.1); Alkaline Phosphatase 47 U/L (38-126); Anion Gap 13 mmol/L (4-12); Aspartate Amino Transferase 38 U/L (17-59); Bilirubin,Total 1.8 mg/dL (0.2-1.3); Blood Urea Nitrogen 17 mg/dL (9-20); Calcium 9.8 mg/dL (8.4-10.2); Carbon Dioxide 25 mmol/L (22-30); Chloride 104 mmol/L (98-107); Cholesterol 152 mg/dL (0-200); Estimated Glomerular Filt Rate > 60; Glucose 90 mg/dL (65-110); HDL Direct 59 mg/dL; Potassium 3.9 mmol/L (3.4-5.0); Sodium 142 mmol/L (137-145); Total Protein 8.6 g/dL (6.3-8.2); Triglycerides 73 mg/dL (<150)
[2025-08-27 13:28] LABS: Syphilis IgG/IgM Antibody Non-Reactive (Nonreactive)
[2025-08-27 13:51] LABS: Thyroid Stimulating Hormone 0.793 uIU/mL (0.465-4.680)
[2025-08-27 13:54] LABS: HIV 1/2 Ab P24 Ag Result Negative (Negative)
[2025-08-27 14:27] LABS: Vitamin B12 211.0 pg/mL (239-931)
== END 2025-08-27 08:23 | disposition home or self-care (01) ==
LOC: ANHGOSHLAB 08:23
PROVIDERS: PCP Internal Medicine
DX: F32.9 Major depressive disorder, single episode, unspecified (principal); R53.83 Other fatigue; Z72.51 High risk heterosexual behavior; Z13.29 Encounter for screening for other suspected endocrine disorder; Z13.0 Encounter for screening for diseases of the blood and blood-forming organs and certain disorders involving the immune mechanism; Z13.228 Encounter for screening for other metabolic disorders; E78.5 Hyperlipidemia, unspecified; Z13.220 Encounter for screening for lipoid disorders; R00.2 Palpitations
CPT/HCPCS: 36415; 80053; 80061; 82306; 82607; 82746; 84443; 85025; 86593; 86703; 86803; 87491; 87591; G0432